=== PATIENT | female | born 1935 | race Caucasian/White ===

== ENCOUNTER 2018-02-11 05:39 | Inpatient (IN) | payer MEDICARE, BC ==
[~2018-02-11] VITALS: Ht 157.5 cm; Wt 59.5 kg
[2018-02-11 05:56] LABS: BASO # 0.1 (0.0-0.2); BASO % 0.7 % (0.0-2.0); EOS # 0.2 (0.0-0.7); EOS % 1.6 % (0-4.0); GRAN # 8.9 (1.4-6.5); GRAN % 75.3 % (42.2-75.2); HEMOGLOBIN 11.4 g/dl (12.5-16.0); LYMPH # 2.3 (1.2-3.4); LYMPH % 19.4 % (20.0-51.0); MEAN CELL VOLUME 88 fl (80.0-100.0); MEAN CORPUSCULAR HEMOGLOBIN 30 pg (27.0-31.0); MEAN CORPUSCULAR HGB CONC 34 g/dl (33.0-37.0); MEAN PLATELET VOLUME 9.9 fl (7.4-10.4); MONO # 0.3 (0.1-0.6); MONO % 2.7 % (1.7-9.3); PLATELET COUNT 177 K/mm3 (130-400); RED BLOOD COUNT 3.78 M/mm3 (4.10-5.30); REDCELL DISTRIBUTION WIDTH-CV 12.5 % (11.5-14.5)
[2018-02-11 05:58] LABS: HEMATOCRIT 33.3 % (37.0-47.0)
[2018-02-11] MEDS ORDERED: ZESTRIL 5MG5 MG PO (06:32)
[2018-02-11] MEDS ORDERED: LASIX 20MG TABL20 MG PO (06:32)
[2018-02-11 06:34] LABS: ALANINE AMINOTRANSFERASE 23 U/L (9-52); ALBUMIN 4.1 gm/dL (3.5-5.0); ALKALINE PHOSPHATASE 92 U/L (50-136); ANION GAP 16 mmol/L (7-16); AST,SGOT 25 U/L (15-37); BILIRUBIN,TOTAL 0.7 mg/dL (0.0-1.0); BLOOD UREA NITROGEN 18 mg/dL (7-17); CALCIUM 9.9 mg/dL (8.4-10.2); CARBON DIOXIDE 19 mmol/L (22-30); CHLORIDE 107 mmol/L (98-107); GLUCOSE 188 mg/dL (74-106); MAGNESIUM 1.5 mg/dL (1.6-2.3); PHOSPHOROUS 4.7 mg/dL (2.5-4.5); POTASSIUM 4.8 mmol/L (3.4-5.0); SODIUM 143 mmol/L (137-145); TOTAL PROTEIN 7.9 gm/dL (6.4-8.2)
[2018-02-11 06:47] LABS: COLLECTION METHOD CLEAN CATCH
[2018-02-11 06:54] LABS: TROPONIN-I < 0.012 ng/mL (0.000-0.034)
[2018-02-11 07:01] LABS: PH 5 (5-8); SQUAMOUS EPITHELIAL 0-2 /hpf; URINE APPEARANCE Turbid; URINE BACTERIA Occasional /hpf; URINE BILIRUBIN Negative (NEGATIVE); URINE BLOOD 2+ (NEGATIVE); URINE COLOR Yellow; URINE GLUCOSE Negative (NEGATIVE); URINE KETONE Negative (NEGATIVE); URINE LEUKOCYTE ESTERASE 3+ (NEGATIVE); URINE NITRATE Positive (NEGATIVE); URINE PROTEIN(semi-quant) 2+ (NEGATIVE); URINE UROBILINOGEN Negative (NEGATIVE)
[2018-02-11 07:07] LABS: C-REACTIVE PROTEIN 2.4 mg/dL (0.0-0.9)
[2018-02-11] MEDS ORDERED: ASPIRIN E.C. 8181 MG PO (07:11)
[2018-02-11] MEDS ORDERED: DIABETA 2.5MG2.5 MG PO (07:22)
[2018-02-11] MEDS ORDERED: NORVASC 10MG10 MG PO (07:23)
[2018-02-11] MEDS ORDERED: DESYREL DIVIDO150 M1 PO (07:24)
[2018-02-11] MEDS ORDERED: ZOCOR5 MG PO (07:24)
[2018-02-11] MEDS ORDERED: PRILOSEC 20MG20 MG PO (07:25)
[2018-02-11 08:00] VITALS: PULSE 69; TEMP 98.8
[2018-02-11] MEDS ORDERED: ZESTRIL40 MG PO (10:36)
[2018-02-11] MEDS ORDERED: GLUCOPHAGE500 MG/TAB PO ×2 (10:39→11:38)
[2018-02-11] MEDS ORDERED: NORCO 325 MG-7.1 TAB PO (10:41)
[2018-02-11] MEDS ORDERED: SENNA8.6 MG PO (10:46)
[2018-02-11] MEDS ORDERED: ANTI-GAS ULTRA180 MG PO (10:48)
[2018-02-11 11:58] VITALS: BP 160/42; PULSE 100; TEMP 101.9
[2018-02-11 16:33] VITALS: BP 112/79; PULSE 55; TEMP 98.9
[2018-02-11 19:19] VITALS: BP 129/73; PULSE 75; TEMP 98.5
[2018-02-11 23:41] VITALS: BP 138/53; PULSE 43; TEMP 98.3
[2018-02-12 03:44] VITALS: BP 140/47; PULSE 45; TEMP 97.7
[2018-02-12 07:39] VITALS: BP 150/43; PULSE 58; TEMP 98.8
[2018-02-12 09:11] LABS: BASO # 0.1 (0.0-0.2); EOS # 0.1 (0.0-0.7); EOS % 1.1 % (0-4.0); GRAN # 6.4 (1.4-6.5); GRAN % 72.1 % (42.2-75.2); LYMPH # 1.6 (1.2-3.4); LYMPH % 18.3 % (20.0-51.0); MEAN CELL VOLUME 90 fl (80.0-100.0); MEAN CORPUSCULAR HEMOGLOBIN 30 pg (27.0-31.0); MEAN CORPUSCULAR HGB CONC 34 g/dl (33.0-37.0); MEAN PLATELET VOLUME 10.3 fl (7.4-10.4); MONO # 0.6 (0.1-0.6); MONO % 7.2 % (1.7-9.3); PLATELET COUNT 145 K/mm3 (130-400); RED BLOOD COUNT 3.29 M/mm3 (4.10-5.30); REDCELL DISTRIBUTION WIDTH-CV 12.5 % (11.5-14.5)
[2018-02-12 09:31] LABS: HEMATOCRIT 29.6 % (37.0-47.0)
[2018-02-12 09:32] LABS: CALCIUM 8.7 mg/dL (8.4-10.2); CREATININE, serum 1.19 mg/dL (0.52-1.25); POTASSIUM 4.5 mmol/L (3.4-5.0)
[2018-02-12 12:13] VITALS: BP 149/57; PULSE 50; TEMP 97.9
[2018-02-12 16:12] VITALS: BP 152/47; PULSE 57; TEMP 98
[2018-02-12 19:38] VITALS: BP 154/52; PULSE 56; TEMP 97.9
[2018-02-12 23:13] VITALS: BP 195/53; PULSE 57; TEMP 98.2
[2018-02-13 01:07] VITALS: BP 165/49
[2018-02-13 03:39] VITALS: BP 180/71; PULSE 54; TEMP 98.3
[2018-02-13 07:37] VITALS: BP 174/54; PULSE 56; TEMP 98.5
[2018-02-13 08:11] LABS: BASO # 0.1 (0.0-0.2); BASO % 1.1 % (0.0-2.0); EOS # 0.2 (0.0-0.7); GRAN % 68.7 % (42.2-75.2); HEMOGLOBIN 10.1 g/dl (12.5-16.0); LYMPH # 1.3 (1.2-3.4); LYMPH % 18.1 % (20.0-51.0); MEAN CELL VOLUME 89 fl (80.0-100.0); MEAN CORPUSCULAR HEMOGLOBIN 30 pg (27.0-31.0); MEAN CORPUSCULAR HGB CONC 34 g/dl (33.0-37.0); MEAN PLATELET VOLUME 10.1 fl (7.4-10.4); MONO # 0.7 (0.1-0.6); MONO % 9.4 % (1.7-9.3); PLATELET COUNT 167 K/mm3 (130-400); RED BLOOD COUNT 3.33 M/mm3 (4.10-5.30); REDCELL DISTRIBUTION WIDTH-CV 12.5 % (11.5-14.5)
[2018-02-13 08:13] LABS: HEMATOCRIT 29.6 % (37.0-47.0)
[2018-02-13 08:21] LABS: CALCIUM 9.1 mg/dL (8.4-10.2); CREATININE, serum 0.85 mg/dL (0.52-1.25); POTASSIUM 4.4 mmol/L (3.4-5.0)
[2018-02-13 12:25] VITALS: BP 155/97; PULSE 66; TEMP 98.5
[2018-02-13] MEDS ORDERED: CIPRO 500MG TA500 MG PO (13:01)
== END 2018-02-13 13:48 | disposition home or self-care (01) | DRG 871 ==
LOC: COL.ER 05:39 → MEDICAL 07:15
PROVIDERS: Emergency Medicine; Nurse Practitioner Family
DX: A41.9 Sepsis, unspecified organism (principal); G93.41 Metabolic encephalopathy; N39.0 Urinary tract infection, site not specified; B96.20 Unspecified Escherichia coli [E. coli] as the cause of diseases classified elsewhere; I10 Essential (primary) hypertension; E11.9 Type 2 diabetes mellitus without complications; Z87.891 Personal history of nicotine dependence; E83.42 Hypomagnesemia
CPT/HCPCS: 99222-AI; 99232-AI; 99239; J0696; J1650; J1815; J2405; J7030

== ENCOUNTER → 2018-02-19 | Outpatient (CLI) | payer MEDICARE, BC ==
[~2018-02-19] MED LIST: ANTI-GAS ULTRA180 MG PO; ASPIRIN E.C. 8181 MG PO; CIPRO 500MG TA500 MG PO; DESYREL DIVIDO150 M1 PO; DIABETA 2.5MG2.5 MG PO; GLUCOPHAGE500 MG/TAB PO; LASIX 20MG TABL20 MG PO; NORCO 325 MG-7.1 TAB PO; NORVASC 10MG10 MG PO; PRILOSEC 20MG20 MG PO; SENNA8.6 MG PO; ZESTRIL 5MG5 MG PO; ZESTRIL40 MG PO; ZOCOR5 MG PO
== END ==
LOC: COL.VAS 09:17
DX: I36.1 Nonrheumatic tricuspid (valve) insufficiency (principal); I50.9 Heart failure, unspecified

== ENCOUNTER 2018-03-11 19:49 | Emergency (ER) | payer MEDICARE, BC ==
[2008-03-07 07:10] VITALS: BP 174/68
[~2018-03-11] VITALS: Ht 157.5 cm; Wt 57.7 kg
[2018-03-11 19:52] VITALS: BP 192/86; TEMP 98.2
[2018-03-11 20:33] LABS: BASO # 0.1 (0.0-0.2); BASO % 0.6 % (0.0-2.0); EOS # 0.2 (0.0-0.7); EOS % 1.8 % (0-4.0); GRAN # 8.4 (1.4-6.5); GRAN % 78.8 % (42.2-75.2); HEMOGLOBIN 10.8 g/dl (12.5-16.0); LYMPH # 1.2 (1.2-3.4); LYMPH % 11.5 % (20.0-51.0); MEAN CELL VOLUME 84 fl (80.0-100.0); MEAN CORPUSCULAR HEMOGLOBIN 30 pg (27.0-31.0); MEAN CORPUSCULAR HGB CONC 36 g/dl (33.0-37.0); MEAN PLATELET VOLUME 9.5 fl (7.4-10.4); MONO # 0.7 (0.1-0.6); MONO % 6.8 % (1.7-9.3); PLATELET COUNT 185 K/mm3 (130-400); RED BLOOD COUNT 3.59 M/mm3 (4.10-5.30); REDCELL DISTRIBUTION WIDTH-CV 11.9 % (11.5-14.5)
[2018-03-11 20:34] LABS: HEMATOCRIT 30.1 % (37.0-47.0)
[2018-03-11 20:49] LABS: ALBUMIN 3.8 gm/dL (3.5-5.0); BILIRUBIN,TOTAL 0.8 mg/dL (0.0-1.0); CALCIUM 9.4 mg/dL (8.4-10.2); CREATININE, serum 1.02 mg/dL (0.52-1.25); TOTAL PROTEIN 6.9 gm/dL (6.4-8.2)
[2018-03-11 22:25] LABS: COLLECTION METHOD CLEAN CATCH
[2018-03-11 22:32] LABS: MUCOUS Present /lpf; PH 7 (5-8); SQUAMOUS EPITHELIAL None Seen /hpf; URINE APPEARANCE Clear; URINE BACTERIA None Seen /hpf; URINE BILIRUBIN Negative (NEGATIVE); URINE BLOOD Negative (NEGATIVE); URINE COLOR Yellow; URINE GLUCOSE Negative (NEGATIVE); URINE KETONE Negative (NEGATIVE); URINE LEUKOCYTE ESTERASE Negative (NEGATIVE); URINE NITRATE Negative (NEGATIVE); URINE PROTEIN(semi-quant) 2+ (NEGATIVE); URINE RBC 0-2 /hpf; URINE UROBILINOGEN Negative (NEGATIVE)
[2018-03-11 22:40] VITALS: PULSE 64
== END 2018-03-11 22:40 | disposition home or self-care (01) ==
LOC: COL.ER 19:49
PROVIDERS: Emergency Medicine
DX: K59.00 Constipation, unspecified (principal); Z90.710 Acquired absence of both cervix and uterus; Z87.440 Personal history of urinary (tract) infections; Z79.82 Long term (current) use of aspirin; Z79.891 Long term (current) use of opiate analgesic; Z79.84 Long term (current) use of oral hypoglycemic drugs
CPT/HCPCS: J7030

== ENCOUNTER → 2018-07-14 | Outpatient (CLI) | payer MEDICARE, BC | LOC: COL.PUL 07:57 | DX: R06.02 Shortness of breath (principal) ==

== ENCOUNTER → 2019-02-24 | Outpatient (CLI) | payer MEDICARE, BC | LOC: COL.RAD 11:08 | DX: I25.10 Atherosclerotic heart disease of native coronary artery without angina pectoris (principal) ==

== ENCOUNTER 2019-12-23 20:36 | Emergency (ER) | payer MEDICARE, BC ==
[2008-03-07 07:10] VITALS: BP 174/68
[~2019-12-23] VITALS: Ht 157.5 cm; Wt 57.3 kg
[~2019-12-23 20:36] MED LIST changes: +DIABETA 5MG5 MG/TAB PO; +NORCO 325 MG-51 TAB PO; +OMNICEF 300MG300 MG PO
[2019-12-23 21:31] LABS: COLLECTION METHOD CLEAN CATCH
[2019-12-23 21:38] LABS: BASO # 0.1 (0.0-0.2); BASO % 0.8 % (0.0-2.0); EOS # 0.1 (0.0-0.7); EOS % 1.5 % (0-4.0); GRAN # 6.8 (1.4-6.5); HEMOGLOBIN 10.7 g/dl (12.5-16.0); LYMPH # 1.2 (1.2-3.4); MEAN CELL VOLUME 88 fl (80.0-100.0); MEAN CORPUSCULAR HEMOGLOBIN 30 pg (27.0-31.0); MEAN CORPUSCULAR HGB CONC 34 g/dl (33.0-37.0); MEAN PLATELET VOLUME 10.2 fl (7.4-10.4); MONO # 0.7 (0.1-0.6); MONO % 8.3 % (1.7-9.3); PLATELET COUNT 170 K/mm3 (130-400); RED BLOOD COUNT 3.54 M/mm3 (4.10-5.30); REDCELL DISTRIBUTION WIDTH-CV 12.2 % (11.5-14.5)
[2019-12-23 21:40] LABS: PH 5 (5-8); SQUAMOUS EPITHELIAL 0-2 /hpf; URINE APPEARANCE Clear; URINE BACTERIA None Seen /hpf; URINE BILIRUBIN Negative (NEGATIVE); URINE BLOOD 1+ (NEGATIVE); URINE COLOR Straw; URINE GLUCOSE Negative (NEGATIVE); URINE KETONE Negative (NEGATIVE); URINE LEUKOCYTE ESTERASE Negative (NEGATIVE); URINE NITRATE Negative (NEGATIVE); URINE PROTEIN(semi-quant) 2+ (NEGATIVE); URINE RBC 0-2 /hpf; URINE UROBILINOGEN Negative (NEGATIVE)
[2019-12-23 21:44] LABS: ALBUMIN 4.2 gm/dL (3.5-5.0); BILIRUBIN,TOTAL 0.4 mg/dL (0.0-1.0); CALCIUM 9.8 mg/dL (8.4-10.2); CREATININE, serum 1.36 (0.52-1.25); POTASSIUM 4.8 mmol/L (3.4-5.0); TOTAL PROTEIN 7.7 gm/dL (6.4-8.2)
[2019-12-23 21:47] LABS: HEMATOCRIT 31.2 % (37.0-47.0)
[2019-12-23 23:28] VITALS: BP 142/93; PULSE 58; TEMP 97
[2019-12-24] MEDS ORDERED: OMNICEF 300MG300 MG PO (12:43)
[2019-12-24] MEDS ORDERED: ZITHROMAX Z PA250 MG PO (12:43)
== END 2019-12-23 23:29 | disposition home or self-care (01) ==
LOC: COL.ER 20:36
PROVIDERS: Family Medicine
DX: E86.0 Dehydration (principal); E87.1 Hypo-osmolality and hyponatremia; E11.9 Type 2 diabetes mellitus without complications; I10 Essential (primary) hypertension; K21.9 Gastro-esophageal reflux disease without esophagitis; Z79.82 Long term (current) use of aspirin; Z79.84 Long term (current) use of oral hypoglycemic drugs
CPT/HCPCS: J7120

== ENCOUNTER → 2020-11-29 | Outpatient (CLI) | payer MEDICARE, BC ==
[~2020-11-29] MED LIST changes: +CEPHALEXIN500 M1 PO; +CRANBERRY250 MG; +OMEGA-3 1000 MG1 CAP PO; +PROBIOTICA100 Milli1; +ZITHROMAX Z PA250 MG PO; +ZOCOR 20MG20 MG PO
== END ==
LOC: COL.VAS 13:27
DX: I50.32 Chronic diastolic (congestive) heart failure (principal); J90 Pleural effusion, not elsewhere classified; I34.0 Nonrheumatic mitral (valve) insufficiency

== ENCOUNTER 2020-12-12 09:38 | Observation (INO) | payer MEDICARE, BC ==
[2008-03-07 07:10] VITALS: BP 174/68
[~2020-12-12] VITALS: Ht 157.5 cm; Wt 53.4 kg
[2020-12-12] VITALS (12 sets, daily range): BP systolic 118–189; BP diastolic 41–85; PULSE 55–68; TEMP 97.3–97.8
[~2020-12-12 09:38] MED LIST changes: -CEPHALEXIN500 M1 PO; -CRANBERRY250 MG; -OMEGA-3 1000 MG1 CAP PO; -PROBIOTICA100 Milli1; -ZOCOR 20MG20 MG PO
[2020-12-12 10:08] LABS: ALANINE AMINOTRANSFERASE 25 U/L (4-34); ALKALINE PHOSPHATASE 75 U/L (50-136); ANION GAP 12 mmol/L (7-16); AST,SGOT 22 U/L (15-37); BILIRUBIN,TOTAL 0.3 mg/dL (0.0-1.0); BLOOD UREA NITROGEN 64 mg/dL (7-17); CALCIUM 9.7 mg/dL (8.4-10.2); CARBON DIOXIDE 21 mmol/L (22-30); CHLORIDE 99 mmol/L (98-107); CREATININE, serum 1.73 (0.52-1.25); GLUCOSE 380 mg/dL (74-106); POTASSIUM 5.4 mmol/L (3.4-5.0); SODIUM 132 mmol/L (137-145); TOTAL PROTEIN 7.2 gm/dL (6.4-8.2)
[2020-12-12 10:09] LABS: INR 1.1 (0.8-3.0)
[2020-12-12 10:11] LABS: BASO % 0.3 % (0.0-2.0); EOS % 0.3 % (0-4.0); GRAN # 9.4 (1.4-6.5); GRAN % 79.3 % (42.2-75.2); HEMOGLOBIN 11.2 g/dl (12.5-16.0); LYMPH # 1.7 (1.2-3.4); LYMPH % 14.5 % (20.0-51.0); MEAN CELL VOLUME 89 fl (80.0-100.0); MEAN CORPUSCULAR HEMOGLOBIN 31 pg (27.0-31.0); MEAN CORPUSCULAR HGB CONC 35 g/dl (33.0-37.0); MEAN PLATELET VOLUME 10.6 fl (7.4-10.4); MONO # 0.6 (0.1-0.6); MONO % 4.8 % (1.7-9.3); PLATELET COUNT 232 K/mm3 (130-400); RED BLOOD COUNT 3.63 M/mm3 (4.10-5.30); REDCELL DISTRIBUTION WIDTH-CV 12.5 % (11.5-14.5)
[2020-12-12 10:17] LABS: HEMATOCRIT 32.4 % (37.0-47.0)
[2020-12-12 10:22] LABS: TROPONIN-I < 0.012 ng/mL (0.000-0.035)
[2020-12-12] MEDS ORDERED: OMEGA-3 1000 MG1 CAP PO (15:12)
[2020-12-12] MEDS ORDERED: PROBIOTICA100 Milli1 (15:12)
[2020-12-12] MEDS ORDERED: CRANBERRY250 MG (15:13)
[2020-12-12] MEDS ORDERED: ZOCOR 20MG20 MG PO (15:24)
--- NOTE | 2020-12-12 15:57 | NUR ---
SEE MERGE FOR ALL MEDICATION ADMINISTRATION TIMES, INTRA AND POST SEDATION ASSESSMENT
[2020-12-12 18:45] LABS: TROPONIN-I 0.049 ng/mL (0.000-0.035)
[2020-12-12 18:59] LABS: THYROID STIMULATING HORMONE 0.438 uIU/mL (0.465-4.680)
--- NOTE | 2020-12-12 19:01 | NUR ---
Critical troponin value, 0.049, recieved from lab. MILO Greenfield notified.
--- NOTE | 2020-12-12 19:03 | NUR ---
Patient transferred up from the ED with bradycardia. Patient had been C/O SOB for two months. Upon initial assessment, Lungs were clear to auscultation bilaterally, bowel sounds were present in all four quadrants, normal S1 and S2 sounds present. Radial and pedal pulses were +2 bilaterally. Equal tile layer helper strength. No skin issues noted. Patient is unstable on her feet and was placed under fall percautions. IV was placed in left forearm, dressing is clean, dry, and intact. IV fluids infusing as ordered. Patient is A&O. Patient had a pacemaker placed and is currently on post-op vital signs. Patient C/O minimal pain at the surgery site. Ice pack place to help with discomfort. Surgical site has a sterile gauze dressing; clean, dry, and intact. Blood sugar at 1815 was 399. 8 units of Novolog given. Patient denies any further needs at this time. Call light within reach. Fall percautions in place. Bedside report given to MALIK Monzon.
[2020-12-12 19:06] LABS: CALCIUM 9.7 mg/dL (8.4-10.2); CREATININE, serum 1.47 (0.52-1.25); POTASSIUM 5.2 mmol/L (3.4-5.0)
--- NOTE | 2020-12-12 19:09 | NUR ---
GLUCOSE CRITICAL VALUE CALLED FROM LAB. PREVIOUS NURSE HAS ADMINISTERED INSULIN SINCE LAB WAS DRAWN. WILL RECHECK IN AN HOUR. PATIENT JUST FINISHED EATING.
--- NOTE | 2020-12-12 20:19 | NUR ---
patient ambulated to the bathroom prior to this set of v/s
[2020-12-13 04:25] LABS: MEAN CELL VOLUME 87 fl (80.0-100.0); MEAN CORPUSCULAR HGB CONC 35 g/dl (33.0-37.0); MEAN PLATELET VOLUME 10.1 fl (7.4-10.4); PLATELET COUNT 140 K/mm3 (130-400); RED BLOOD COUNT 3.08 M/mm3 (4.10-5.30); REDCELL DISTRIBUTION WIDTH-CV 12.5 % (11.5-14.5)
[2020-12-13 04:29] LABS: HEMATOCRIT 26.8 % (37.0-47.0); HEMOGLOBIN 9.3 g/dl (12.5-16.0); MEAN CORPUSCULAR HEMOGLOBIN 30 pg (27.0-31.0)
[2020-12-13 04:36] LABS: CALCIUM 9.1 mg/dL (8.4-10.2); CREATININE, serum 1.15 (0.52-1.25); POTASSIUM 3.9 mmol/L (3.4-5.0)
[2020-12-13 05:06] LABS: TROPONIN-I 0.076 ng/mL (0.000-0.035)
--- NOTE | 2020-12-13 05:09 | NUR ---
NOTIFIED [facility] HICKS OF CRITICAL TROPONIN 0.076. NO NEW ORDERS. PATIENT RESTED QUIETLY IN BED THROUGHOUT THE NIGHT. ONLY COMPLAINT WAS PAIN WHERE THE PACEMAKER WAS PLACED. NO NEW ISSUES NOTED OR REPORTED BY PATIENT. PATIENT AMBULATED WITH SBA ASSIST TO THE BATHROOM 3 X'S THROUGHOUT THE SHIFT.
--- NOTE | 2020-12-13 07:09 | NUR ---
Patient resting in bed at this time. NS running as ordered. No signs of pain or discomfort at this time. Will continue to monitor. Call light within reach. Fall percautions in place.
[2020-12-13 07:38] VITALS: BP 171/54; PULSE 61; TEMP 97.7
[2020-12-13 11:23] LABS: COLLECTION METHOD CLEAN CATCH
[2020-12-13 11:46] LABS: MUCOUS Present /lpf; PH 6 (5-8); SQUAMOUS EPITHELIAL None Seen /hpf; URINE APPEARANCE Clear; URINE BACTERIA None Seen /hpf; URINE BILIRUBIN Negative (NEGATIVE); URINE BLOOD Negative (NEGATIVE); URINE COLOR Straw; URINE GLUCOSE 3+ (NEGATIVE); URINE KETONE Negative (NEGATIVE); URINE LEUKOCYTE ESTERASE Negative (NEGATIVE); URINE NITRATE Negative (NEGATIVE); URINE PROTEIN(semi-quant) 1+ (NEGATIVE); URINE RBC 0-2 /hpf; URINE UROBILINOGEN Negative (NEGATIVE)
[2020-12-13 12:46] VITALS: BP 148/75; PULSE 72; TEMP 98.6
--- NOTE | 2020-12-13 14:11 | NUR ---
Primary nurse was assisted with [id number] patient care by [employer] student Serina Light and [employer] instructor Di Hicks MSN, RN.
--- NOTE | 2020-12-13 16:28 | NUR ---
Salad Bar Clerk met with patient to discuss discharge planning. Patient lives outside of [place] with her , Jared (ph#[phone]). Patient sees Dr. Pina for primary care and obtains medications at [facility] with no difficulties. Patient has a cane and walker at home but states she mostly uses her walker. Patient is independent with ADLS and plans to return home upon discharge. Patient believes she has Advance Directives including a Living Will and DPOA-HC but SW did not locate copy in EMR. Discharge Plan: Home
[2020-12-13 16:31] VITALS: BP 146/40; PULSE 68; TEMP 98.3
--- NOTE | 2020-12-13 18:23 | NUR ---
Patient had an uneventful day. VQ scan was done. Stress test scheduled for Thursday. Patient denies any pain or discomfort at this time. Patient denies any further needs at this time. Call light within reach. Fall percautions in place.
[2020-12-13 19:54] VITALS: BP 132/52; PULSE 64; TEMP 98.2
--- NOTE | 2020-12-13 23:00 | NUR ---
PATIENT PLESANT AND COOPERATIVE, KEEPS VOICING SHE IS READY TO GO HOME.
[2020-12-13 23:56] VITALS: BP 136/53; PULSE 60; TEMP 97.9
[2020-12-14 04:41] VITALS: BP 122/59; PULSE 60; TEMP 97.4
[2020-12-14 06:10] LABS: MEAN CELL VOLUME 88 fl (80.0-100.0); MEAN CORPUSCULAR HGB CONC 34 g/dl (33.0-37.0); MEAN PLATELET VOLUME 10.1 fl (7.4-10.4); PLATELET COUNT 148 K/mm3 (130-400); RED BLOOD COUNT 3.28 M/mm3 (4.10-5.30); REDCELL DISTRIBUTION WIDTH-CV 12.7 % (11.5-14.5)
[2020-12-14 06:15] LABS: HEMOGLOBIN 9.9 g/dl (12.5-16.0); MEAN CORPUSCULAR HEMOGLOBIN 30 pg (27.0-31.0)
[2020-12-14 06:17] LABS: CALCIUM 9.1 mg/dL (8.4-10.2); CREATININE, serum 1.09 (0.52-1.25)
--- NOTE | 2020-12-14 07:00 | NUR ---
Report received from MALIK Carednas. PT in bed resting with eyes closed, will continue to monitor.
[2020-12-14 07:58] VITALS: BP 174/119; PULSE 64; TEMP 97.3
[2020-12-14 08:45] VITALS: BP 122/45
[2020-12-14 08:50] VITALS: BP 129/49
--- NOTE | 2020-12-14 09:18 | NUR ---
pt did not require oxygen with ambulation
--- NOTE | 2020-12-14 10:00 | NUR ---
Assessment charted. Pt resting in chair at side of bed, LUE shoulder is sore from pacemaker, PRN tylenol given per reqeust. RUPESH pacemaker site is well approximated and covered with dressing. DOes not want sling, or ice pack in place. INT to LFA. Will continue to monitor.
[2020-12-14] MEDS ORDERED: CEPHALEXIN500 M1 PO (10:53)
[2020-12-14 12:55] VITALS: BP 133/36; PULSE 59; TEMP 97.8
--- NOTE | 2020-12-14 13:35 | NUR ---
Called Dr Hanks regarding pt dishcarge once he sees patient, he will be here in about 1 hour, updated hospitalist and will notify patient.
--- NOTE | 2020-12-14 14:01 | NUR ---
[facility] nurse was assisted with [id number] patient care by [employer] student Serina Light and [employer] instructor Di Hicks MSN, RN.
--- NOTE | 2020-12-14 16:28 | NUR ---
Discharge teaching completed at this time. Pt INT dc'd, tip intact. Pt received dishcargte packet, answered all questions, reviewed f/u appointments and new scripts. REmoved pacemaker dressing and left IN MOLD COATER, edges well approximated. at bedside, answered all questions. Pt left with all belongings, escorted out via w/c by myself. to drive home, criteria met.
== END 2020-12-14 16:15 | disposition home or self-care (01) ==
LOC: COL.ER 09:38 → MEDICAL 10:49
PROVIDERS: Family Medicine; Physician Assistant; ADMIT Family Medicine
DX: R00.1 Bradycardia, unspecified (principal); R55 Syncope and collapse; R06.02 Shortness of breath; I12.9 Hypertensive chronic kidney disease with stage 1 through stage 4 chronic kidney disease, or unspecified chronic kidney disease; N39.0 Urinary tract infection, site not specified; E87.5 Hyperkalemia; N18.30 Chronic kidney disease, stage 3 unspecified; E87.1 Hypo-osmolality and hyponatremia; D64.9 Anemia, unspecified; D72.829 Elevated white blood cell count, unspecified; I49.5 Sick sinus syndrome; E11.22 Type 2 diabetes mellitus with diabetic chronic kidney disease; Z90.710 Acquired absence of both cervix and uterus; Z20.822 Contact with and (suspected) exposure to COVID-19; Z79.891 Long term (current) use of opiate analgesic; Z79.82 Long term (current) use of aspirin; Z79.84 Long term (current) use of oral hypoglycemic drugs; Z79.899 Other long term (current) drug therapy; Z87.891 Personal history of nicotine dependence; Z88.2 Allergy status to sulfonamides; Z80.3 Family history of malignant neoplasm of breast
CPT/HCPCS: 99233-AI; A9540; A9567; C1769; C1785; C1894; C1898; G0378; J0690; J1815; J2250; J3010; J7030

== ENCOUNTER → 2021-11-11 | Outpatient (CLI) | payer MEDICARE, BC ==
[~2021-11-11] MED LIST changes: +ASPI325T6 PO; +CEPHALEXIN500 M1 PO; +CRANBERRY250 MG; +MELATIN 3 MG-11 TAB PO; +OMEGA-3 1000 MG1 CAP PO; +PROBIOTIC ACID1 EAC3 PO; +PROBIOTICA100 Milli1; +TYLENOL 500MG500 MG PO; +ZOCOR 20MG20 MG PO
[2021-11-11 13:37] LABS: BASO # 0.1 K/mm3 (0.0-0.2); BASO % 0.9 % (0.0-2.0); EOS # 0.1 K/mm3 (0.0-0.7); EOS % 1.4 % (0.0-4.0); GRAN # 5.9 K/mm3 (1.4-6.5); GRAN % 77.8 % (42.2-75.2); LYMPH # 1.1 K/mm3 (1.2-3.4); LYMPH % 14.1 % (20.0-51.0); MEAN CELL VOLUME 85 fl (80.0-100.0); MEAN CORPUSCULAR HEMOGLOBIN 30 pg (27-31); MEAN CORPUSCULAR HGB CONC 35 g/dl (33.0-37.0); MEAN PLATELET VOLUME 9.7 fl (7.4-10.4); MONO # 0.4 K/mm3 (0.1-0.6); MONO % 5.5 % (1.7-9.3); PLATELET COUNT 166 K/mm3 (130-400); RED BLOOD COUNT 3.64 M/mm3 (4.10-5.30); REDCELL DISTRIBUTION WIDTH-CV 11.9 % (11.5-14.5)
[2021-11-11 13:39] LABS: HEMATOCRIT 31.1 % (37.0-47.0)
[2021-11-11 13:49] LABS: ALBUMIN 3.3 gm/dL (3.4-4.8); BILIRUBIN,TOTAL 0.3 mg/dL (0.2-1.2); CALCIUM 9.1 mg/dL (8.4-10.2); CREATININE, serum 1.06 mg/dL (0.57-1.11); POTASSIUM 4.6 mmol/L (3.5-4.5); TOTAL PROTEIN 6.2 gm/dL (6.2-8.1)
[2021-11-11 14:08] LABS: THYROID STIMULATING HORMONE 1.007 uIU/mL (0.350-4.940)
== END ==
LOC: COL.RAD 13:10 → COL.LAB 13:10
PROVIDERS: Family Medicine
DX: S32.9XXG Fracture of unspecified parts of lumbosacral spine and pelvis, subsequent encounter for fracture with delayed healing (principal); M47.816 Spondylosis without myelopathy or radiculopathy, lumbar region; M16.12 Unilateral primary osteoarthritis, left hip; E11.59 Type 2 diabetes mellitus with other circulatory complications; M25.562 Pain in left knee; D63.8 Anemia in other chronic diseases classified elsewhere; I10 Essential (primary) hypertension; Z96.652 Presence of left artificial knee joint

== ENCOUNTER 2021-11-12 10:08 | Inpatient (IN) | payer MEDICARE, BC ==
[~2021-11-12 10:08] MED LIST changes: -ASPI325T6 PO; -MELATIN 3 MG-11 TAB PO; -PROBIOTIC ACID1 EAC3 PO; -TYLENOL 500MG500 MG PO
[2021-11-12] MEDS ORDERED: GLUCOPHAGE500 MG/TAB PO (14:50)
[2021-11-12 15:21] VITALS: BP 152/58; PULSE 72; TEMP 98.2
[2021-11-12 15:23] VITALS: BP 152/58; PULSE 72; TEMP 98.2
[2021-11-12 15:45] LABS: HEMATOCRIT 31.8 % (37.0-47.0); HEMOGLOBIN 11.1 g/dl (12.5-16.0); MEAN CELL VOLUME 86 fl (80.0-100.0); MEAN CORPUSCULAR HEMOGLOBIN 30 pg (27-31); MEAN CORPUSCULAR HGB CONC 35 g/dl (33.0-37.0); MEAN PLATELET VOLUME 9.8 fl (7.4-10.4); PLATELET COUNT 162 K/mm3 (130-400); RED BLOOD COUNT 3.69 M/mm3 (4.10-5.30); REDCELL DISTRIBUTION WIDTH-CV 11.9 % (11.5-14.5)
[2021-11-12 16:00] LABS: ALBUMIN 3.4 gm/dL (3.4-4.8); BILIRUBIN,TOTAL 0.3 mg/dL (0.2-1.2); CALCIUM 9.4 mg/dL (8.4-10.2); CREATININE, serum 1.02 mg/dL (0.57-1.11); POTASSIUM 4.2 mmol/L (3.5-4.5); TOTAL PROTEIN 6.5 gm/dL (6.2-8.1)
--- NOTE | 2021-11-12 19:33 | NUR ---
REPORT GIVEN TO MALIK OCAMPO. CONTACTED PROVIDER REGUARDING THE 20 UNIT LONG ACTING INSULIN AND THE CONCERN FOR NPO AFTER MIDNIGHT. MILO BEGUM STATES NOT TO GIVEN THE ONE TIME DOSE. ENDORSED THIS INFORMATION TO MALIK OCAMPO WHO IS TAKING OVER CARE OF THIS PATIENT. NO OTHER CONCERNS AT THIS TIME.
[2021-11-12 20:31] VITALS: BP 153/51; PULSE 64; TEMP 98.3
[2021-11-12 22:03] LABS: COLLECTION METHOD CLEAN CATCH
[2021-11-12 22:13] LABS: PH 9 (5-8); SQUAMOUS EPITHELIAL 0-2 /hpf (0-10); URINE APPEARANCE Hazy (CLEAR/HAZY); URINE BACTERIA None Seen /hpf (NONE SEEN); URINE BILIRUBIN Negative (NEGATIVE); URINE BLOOD Negative (NEGATIVE); URINE COLOR Yellow (YELLOW); URINE GLUCOSE 2+ (NEGATIVE); URINE KETONE Negative (NEGATIVE); URINE LEUKOCYTE ESTERASE Negative (NEGATIVE); URINE NITRATE Negative (NEGATIVE); URINE PROTEIN(semi-quant) 2+ (NEGATIVE); URINE RBC 0-2 /hpf (0-2); URINE UROBILINOGEN Negative (NEGATIVE); URINE WBC 0-2 /hpf (0-2)
--- NOTE | 2021-11-12 22:38 | NUR ---
Patient assessed around 2119. Alert, very hard of hearing. Denies pain and discomfort. Indwelling pascal catheter placed per orders, with UA sent to lab. Patient aware that she is NPO after midnight for procedure tomorrow. Voices no questions, needs, or concerns at this time. In bed with call light within reach. Bed alarm on.
[2021-11-13] VITALS (13 sets, daily range): BP systolic 130–194; BP diastolic 49–85; PULSE 59–80; TEMP 97.4–98.4
--- NOTE | 2021-11-13 06:18 | NUR ---
Patient recieved PRN Morphine for pain during the night. In bed with call light within reach. Has been NPO since midnight. Voices no questions, needs, or concerns at this time. In bed with call light within reach.
[2021-11-13 06:25] LABS: BASO # 0.1 K/mm3 (0.0-0.2); BASO % 0.8 % (0.0-2.0); EOS # 0.2 K/mm3 (0.0-0.7); GRAN # 6.5 K/mm3 (1.4-6.5); GRAN % 68.1 % (42.2-75.2); HEMOGLOBIN 11.3 g/dl (12.5-16.0); LYMPH # 1.9 K/mm3 (1.2-3.4); LYMPH % 19.6 % (20.0-51.0); MEAN CELL VOLUME 85 fl (80.0-100.0); MEAN CORPUSCULAR HEMOGLOBIN 31 pg (27-31); MEAN CORPUSCULAR HGB CONC 36 g/dl (33.0-37.0); MEAN PLATELET VOLUME 9.8 fl (7.4-10.4); MONO # 0.9 K/mm3 (0.1-0.6); MONO % 9.2 % (1.7-9.3); PLATELET COUNT 167 K/mm3 (130-400); RED BLOOD COUNT 3.71 M/mm3 (4.10-5.30); REDCELL DISTRIBUTION WIDTH-CV 11.8 % (11.5-14.5)
[2021-11-13 06:49] LABS: HEMATOCRIT 31.6 % (37.0-47.0)
[2021-11-13 07:13] LABS: ALBUMIN 3.2 gm/dL (3.4-4.8); CALCIUM 9.4 mg/dL (8.4-10.2); CREATININE, serum 0.93 mg/dL (0.57-1.11); MAGNESIUM 1.8 mg/dL (1.6-2.6); POTASSIUM 3.6 mmol/L (3.5-4.5)
--- NOTE | 2021-11-13 10:05 | NUR ---
PT IS TAKEN TO SURGERY. PT HAS BEEN CONFUSED ET RESTLESS. PT REPEATEDLY STATES THAT SHE NEEDS TO URINATE ET CANNOT COMPREHEND THAT SHE HAS A TAVERA CATHETER IN, ATTEMPTS TO LEAVE BED BUT HAS PAIN IN LEFT HIP. PT'S SPOUSE SIGNS CONSENT, STAYS IN PT'S ROOM WHILE PT IS IN SURGERY.
--- NOTE | 2021-11-13 13:46 | NUR ---
PT BACK TO ROOM FROM SURGERY @ 1325. PT IS SLEEPING BUT AROUSABLE. RESPIRATIONS UNLABORED. SCDS ET BED ALARM ON. CALL LIGHT WITHIN REACH.
--- NOTE | 2021-11-13 16:25 | NUR ---
[employer]eller Seam Operator attempted to meet with patient to discuss discharge planning. Patient had surgery this morning and was asleep during intake. Patient's , Jared (ph#[phone]) is at bedside and answered questions on patient's behalf. Patient lives in [place] with her and sees Dr. Pina or Dr. Howell for primary care. Patient obtains medications from [facility] and has both walkers and wheelchairs available at home. Patient has no Advance Directives on file. SW discussed the likely need for post acute rehab at time of discharge. Jared stated that his preference would to have patient return home with Home Health. Jared did not think patient would be agreeable to rehab. SW will follow up after PT/OT екатерина. Discharge Plan: Pending PT/OT екатерина
--- NOTE | 2021-11-13 18:15 | NUR ---
PT IS RESTLESS IN BED BUT DOES NOT SHOW OTHER SIGNS OF PAIN. PT IS PLEASANTLY CONFUSED, SMILES ET LAUGHS. PT SOMETIMES INAPPROPRIATELY LAUGHS, IS VERY CHICKEN RANCH. PT HAS TAKEN OUT HER OWN PERIPHERAL IV IN LEFT FA, ARM IS BLEEDING, DRESSING APPLIED. LARA RN INSERTED NEW PERIPHERAL IV INTO PT'S RIGHT FA. ATTEMPTS MADE TO EDUCATE PT ON IV, UNDERSTANDING IS VERY LIMITED. TAVERA CATH IS DRAINING DEPENDENTLY, URINE IS YELLOW ET CLEAR. PT HAS HAD ADEQUATE URINARY OUTPUT BUT REPEATEDLY STATES THAT SHE HAS TO URINATE. ATTEMPTS MADE TO EDUCATE PT ON CATHETER. PT IS UNABLE TO COMPREHEND EDUCATION, MEMORY IS LIMITED. PT STATES THAT SHE DOES REMEBER COMING TO THE HOSPITAL YESTERDAY WITH HER ET THAT SHE WAS TO HAVE SURGERY. AQUACELL DRESSING IS CDI TO LEFT HIP, ICE APPLIED. SCDS IN PLACE. BED ALARM IS ON FOR SAFETY. PT EDUCATED COPIER FIELD SERVICE TECHNICIAN LIGHT, IS WITHIN REACH. RESPITRATIONS UNLABORED.
[2021-11-14] VITALS (7 sets, daily range): BP systolic 103–198; BP diastolic 39–87; PULSE 61–103; TEMP 94–98.6
--- NOTE | 2021-11-14 00:46 | NUR ---
Received report from day shift. Patient resting in bed eating dinner. Patient appears confused. Assessment performed. Patient became restless, attempted to get out of bed and pulled IV out of right forearm, attempted to pull catheter out, and removed TELE leads. Attempted to reorient patient. Called Gin for guidance. Gin ordered seroquel. Patient rested for approximately 5 minutes and attempted to get out of bed again. Called Gin for guidance. Gin ordered melatonin and to give PRN pain meds. Inserted new IV into Right hand, applied mittens, and monitored patient. Patient rested approximately 30 minutes and became restless again. Reoriented patient and will continue to monitor.
--- NOTE | 2021-11-14 04:21 | NUR ---
PATIENT APPEARS IN SIGNIFICANT PAIN, TOLD PCT SHE WAS IN A LOT OF PAIN. GAVE MORPHINE IV AND CALLED [facility] FOR GUIDANCE. [facility]EK INSTRUCTED TO GIVE NORCO EARLY TO TRY TO DECREASE PAIN. PATIENT IS IN BED MOANING AND COMPLAINING OF HIP PAIN. WILL CONTINUE TO MONITOR.
[2021-11-14 06:20] LABS: BASO # 0.1 K/mm3 (0.0-0.2); BASO % 0.5 % (0.0-2.0); EOS # 0.1 K/mm3 (0.0-0.7); EOS % 0.9 % (0.0-4.0); GRAN # 8.4 K/mm3 (1.4-6.5); GRAN % 79.2 % (42.2-75.2); HEMOGLOBIN 11.3 g/dl (12.5-16.0); LYMPH # 1.1 K/mm3 (1.2-3.4); LYMPH % 10.5 % (20.0-51.0); MEAN CELL VOLUME 84 fl (80.0-100.0); MEAN CORPUSCULAR HEMOGLOBIN 30 pg (27-31); MEAN CORPUSCULAR HGB CONC 36 g/dl (33.0-37.0); MEAN PLATELET VOLUME 9.9 fl (7.4-10.4); MONO # 0.9 K/mm3 (0.1-0.6); MONO % 8.4 % (1.7-9.3); PLATELET COUNT 169 K/mm3 (130-400); RED BLOOD COUNT 3.77 M/mm3 (4.10-5.30)
[2021-11-14 06:23] LABS: HEMATOCRIT 31.7 % (37.0-47.0)
[2021-11-14 06:29] LABS: ALBUMIN 3.3 gm/dL (3.4-4.8); CALCIUM 9.3 mg/dL (8.4-10.2); CREATININE, serum 1.04 mg/dL (0.57-1.11); MAGNESIUM 1.6 mg/dL (1.6-2.6); PHOSPHOROUS 3.2 mg/dL (2.3-4.7); POTASSIUM 3.7 mmol/L (3.5-4.5)
--- NOTE | 2021-11-14 10:30 | NUR ---
PT ASSESSED. NO COMPLAINTS OF DYSPNEA. NO SIGNS OR SYMPTOMS OF DISTRESS. CALL LIGHT WITHIN REACH. COMPLAINS OF PAIN AND IS MEDICATED PER MAR. NO OTHER CONCERNS AT THIS TIME
--- NOTE | 2021-11-14 13:33 | NUR ---
Marketing Summer Intern followed up with patient on PT/OT recommendation for SNF. Patient's , Jared and daughter, Akilah (ph#[phone]) is at bedside. Patient and family are agreeable to have referrals sent to [facility]. SW faxed referrals. Discharge Plan: SNF referrals pending
--- NOTE | 2021-11-15 00:13 | NUR ---
Received report from day shift. Patient resting in bed. Refused dinner. Has not urinated for nurse after pascal DC. Will continue to monitor and bladder scan if no urine produced after dinner. Patient displays intermittent confusion is alert but not oriented. Patiend VSS, lungs CTA, wound dressed, no drainage. Patient confused, mittens applied, assessment performed and pm meds given. Patient verbalized she was in pain. Medication given. Patient resting in bed with call light near.
--- NOTE | 2021-11-15 02:31 | NUR ---
Patient has not voided. Bladder scan revealed approximately 250ml. Placed patient on bedside commode, promoted hydration and provided fluids near bedside. Patient unable to void at this time. After getting up, patient complained of hip pain at surgical site. Patient requested pain medications.
[2021-11-15 04:03] VITALS: BP 156/52; PULSE 81; TEMP 97.2
--- NOTE | 2021-11-15 05:08 | NUR ---
Patient unable to urinate. Called Gin for guidance. Gin instructed to perform a repeat bladder scan. 280ml noted. Called Gin again. Gin asked for a random blood sugar, checked and is WNL. Gin instructed to continue to monitor while encouraging fluids with soft fluids running in IV. Will continue to monitor.
[2021-11-15 06:56] LABS: BASO # 0.1 K/mm3 (0.0-0.2); BASO % 0.5 % (0.0-2.0); EOS # 0.2 K/mm3 (0.0-0.7); EOS % 1.3 % (0.0-4.0); GRAN % 74.6 % (42.2-75.2); LYMPH # 1.5 K/mm3 (1.2-3.4); LYMPH % 12.1 % (20.0-51.0); MEAN CELL VOLUME 85 fl (80.0-100.0); MEAN CORPUSCULAR HGB CONC 36 g/dl (33.0-37.0); MEAN PLATELET VOLUME 9.9 fl (7.4-10.4); MONO # 1.3 K/mm3 (0.1-0.6); PLATELET COUNT 136 K/mm3 (130-400); RED BLOOD COUNT 3.19 M/mm3 (4.10-5.30)
[2021-11-15 07:00] LABS: HEMOGLOBIN 9.6 g/dl (12.5-16.0); MEAN CORPUSCULAR HEMOGLOBIN 30 pg (27-31)
[2021-11-15 07:19] LABS: ALBUMIN 2.6 gm/dL (3.4-4.8); CREATININE, serum 0.87 mg/dL (0.57-1.11); MAGNESIUM 1.7 mg/dL (1.6-2.6); PHOSPHOROUS 3.9 mg/dL (2.3-4.7); POTASSIUM 3.5 mmol/L (3.5-4.5)
--- NOTE | 2021-11-15 08:51 | NUR ---
Juan David, at [facility], reports that they are able to accept the patient.
--- NOTE | 2021-11-15 10:14 | NUR ---
PT ASSESSED. NO COMPLAINTS OF PAIN OR DYSPNEA. NO SIGNS OR SYMPTOMS OF DISTRESS. CALL LIGHT WITHIN REACH. AT BEDSIDE.
--- NOTE | 2021-11-15 10:44 | NUR ---
The PA notified BAKARI that the clinical team would be ready to discharge the patient today. Courtney, at [facility], reports that they are able to accept the patient. BAKARI met with the patient and her , Jared, to update on the referrals. Jraed reports that they have talked to Courtney at [facility] and would prefer to go to [facility]. BAKARI presented and read the IM form outloud to the patient and her . The patient signed the form. BAKARI provided them with a copy. BAKARI updated Courtney at [facility]. The patient is to discharge today, 11/15, to [facility] for skilled stay. Transportation was scheduled at 1300, via [facility]. BAKARI informed the patient, her , and RN of the time. No additional needs at this time.
[2021-11-15 11:42] VITALS: BP 140/57; PULSE 67; TEMP 98.6
[2021-11-15] MEDS ORDERED: ASPI325T6 PO (11:58)
[2021-11-15] MEDS ORDERED: NORCO 325 MG-51 TAB PO (11:58)
[2021-11-15] MEDS ORDERED: OMEGA-3 1000 MG1 CAP PO (11:59)
[2021-11-15] MEDS ORDERED: ZOCOR 20MG20 MG PO (11:59)
[2021-11-15] MEDS ORDERED: TYLENOL 500MG500 MG PO (11:59)
[2021-11-15] MEDS ORDERED: NORVASC 10MG10 MG PO (11:59)
[2021-11-15] MEDS ORDERED: PRILOSEC 20MG20 MG PO (12:00)
[2021-11-15] MEDS ORDERED: DIABETA 5MG5 MG/TAB PO (12:00)
[2021-11-15] MEDS ORDERED: GLUCOPHAGE500 MG/TAB PO (12:00)
[2021-11-15] MEDS ORDERED: PROBIOTIC ACID1 EAC3 PO ×2 (12:01→12:02)
[2021-11-15] MEDS ORDERED: MELATIN 3 MG-11 TAB PO (12:01)
--- NOTE | 2021-11-15 13:50 | NUR ---
REPORT CALLED TO NICHOLE GARCIA. ALL QUESTIONS ANSWERED. IV REMOVED. AT BEDSIDE
== END 2021-11-15 14:00 | DRG 521 ==
LOC: SURG 10:08
PROVIDERS: Orthopaedic Surgery; ADMIT Internal Medicine
PROC: 0SRS0J9 Replacement of Left Hip Joint, Femoral Surface with Synthetic Substitute, Cemented, Open Approach (ICD-10-PCS; principal; 2021-11-13 11:00)
DX: S72.002A Fracture of unspecified part of neck of left femur, initial encounter for closed fracture (principal); G92.8 Other toxic encephalopathy; I12.9 Hypertensive chronic kidney disease with stage 1 through stage 4 chronic kidney disease, or unspecified chronic kidney disease; N18.9 Chronic kidney disease, unspecified; F03.90 Unspecified dementia, unspecified severity, without behavioral disturbance, psychotic disturbance, mood disturbance, and anxiety; E11.22 Type 2 diabetes mellitus with diabetic chronic kidney disease; E78.5 Hyperlipidemia, unspecified; D63.1 Anemia in chronic kidney disease; G89.29 Other chronic pain; M54.9 Dorsalgia, unspecified; G47.00 Insomnia, unspecified; K21.9 Gastro-esophageal reflux disease without esophagitis; I34.0 Nonrheumatic mitral (valve) insufficiency; T41.45XA Adverse effect of unspecified anesthetic, initial encounter; W18.30XA Fall on same level, unspecified, initial encounter; Y93.9 Activity, unspecified; Y92.9 Unspecified place or not applicable; Z20.822 Contact with and (suspected) exposure to COVID-19; Z96.653 Presence of artificial knee joint, bilateral; Z79.84 Long term (current) use of oral hypoglycemic drugs; Z79.82 Long term (current) use of aspirin; Z95.0 Presence of cardiac pacemaker
CPT/HCPCS: 99223-AI; 99232-AI; 99239; A4314; A9284; C1776; J0360; J0690; J1815; J2250; J2270; J2704; J7030; J7121